=== PATIENT | female | born 1945 | race Two or more races ===

== ENCOUNTER 2020-06-19 15:05 | Outpatient (CLI) | payer BC | END 2020-06-19 23:59 | disposition home or self-care (01) | LOC: MSC 15:05 | PROVIDERS: ATTEND Internal Medicine | DX: B35.1 Tinea unguium (principal); G43.109 Migraine with aura, not intractable, without status migrainosus; R63.4 Abnormal weight loss; Z68.20 Body mass index [BMI] 20.0-20.9, adult; R91.8 Other nonspecific abnormal finding of lung field; M54.5 Low back pain; E03.9 Hypothyroidism, unspecified; M85.80 Other specified disorders of bone density and structure, unspecified site; Z79.1 Long term (current) use of non-steroidal anti-inflammatories (NSAID) ==

== ENCOUNTER 2020-12-29 13:36 | Outpatient (CLI) | payer OTHER | END 2020-12-29 23:59 | disposition home or self-care (01) | LOC: MSC 13:36 | PROVIDERS: ATTEND Internal Medicine | DX: R10.9 Unspecified abdominal pain (principal); I10 Essential (primary) hypertension; B35.1 Tinea unguium; E03.9 Hypothyroidism, unspecified; G43.109 Migraine with aura, not intractable, without status migrainosus; R91.8 Other nonspecific abnormal finding of lung field; M54.5 Low back pain; M85.80 Other specified disorders of bone density and structure, unspecified site; Z87.440 Personal history of urinary (tract) infections; Z98.890 Other specified postprocedural states ==

== ENCOUNTER 2023-11-21 18:08 | Emergency (ER) | payer OTHER ==
[~2023-11-21] VITALS: Ht 165.1 cm; Wt 67.1 kg
[2023-11-21 18:56] VITALS: TEMP 98.5
[2023-11-21] MEDS ORDERED: ACETAMINOPHEN ES 500 MG TABLET ONE (20:49)
[2023-11-21] MEDS: ACETAMINOPHEN ES 500 MG TABLET PO ONE (20:53)
[2023-11-21 21:17] VITALS: BP 125/72; O2SAT 99
== END 2023-11-21 21:00 | disposition home or self-care (01) ==
LOC: ER 18:08
DX: S00.03XA Contusion of scalp, initial encounter (principal); M54.50 Low back pain, unspecified; I10 Essential (primary) hypertension; W01.0XXA Fall on same level from slipping, tripping and stumbling without subsequent striking against object, initial encounter; Y93.89 Activity, other specified; Y92.89 Other specified places as the place of occurrence of the external cause; Y99.8 Other external cause status
CPT/HCPCS: 70450-TC; 72125-TC; 72131-TC